=== PATIENT | male | born 1930 | race Caucasian/White ===

== ENCOUNTER → 2018-01-20 | Outpatient (CLI) | payer MEDICARE | END | disposition home or self-care (01) | LOC: RAH 09:00 | PROVIDERS: ATTEND Family Medicine | DX: K57.30 Diverticulosis of large intestine without perforation or abscess without bleeding (principal); I70.0 Atherosclerosis of aorta; N20.0 Calculus of kidney; N28.89 Other specified disorders of kidney and ureter; J90 Pleural effusion, not elsewhere classified | CPT/HCPCS: 74176 ==